=== PATIENT | female | born 1960 | race Hispanic/Latino ===

== ENCOUNTER 2016-09-21 01:00 | Emergency (ER) | payer SELFPAY ==
[~2016-09-21] VITALS: Ht 152.4 cm; Wt 91.4 kg
[2016-09-21] MEDS ORDERED: PREDNISONE20 MG PO (02:17)
[2016-09-21 02:33] VITALS: BP 115/71
== END 2016-09-21 02:35 | disposition home or self-care (01) ==
LOC: EME 01:00
DX: L50.0 Allergic urticaria (principal)
CPT/HCPCS: 99281; 99285; J1200; J2930; S0028

== ENCOUNTER 2017-09-24 11:07 | Emergency (ER) | payer SELFPAY ==
[~2017-09-24] VITALS: Ht 154.9 cm; Wt 94.8 kg
[~2017-09-24 11:07] MED LIST: PREDNISONE20 MG PO
[2017-09-24 11:54] LABS: HEMATOCRIT 40.3 % (36.0-46.0); HEMOGLOBIN 13.6 G/DL (11.9-15.5); MCH 28.6 PG (29.0-34.0); MCHC 33.7 G/DL (30.0-36.0); MCV 84.8 FL (83-99); PLATELET COUNT 268 K/uL (156-360); RBC DIS.WIDTH-CV 12.3 % (11.8-14.6); RBC DIS.WIDTH-SD 37.9 % (39-53); RED BLOOD COUNT 4.75 M/uL (3.80-5.20); WHITE BLOOD COUNT 5.7 K/uL (4.1-10.2)
[2017-09-24 12:08] LABS: CHLORIDE 105 mEq/L (99-109); POTASSIUM 3.8 mEq/L (3.7-5.4); SODIUM 139 mEq/L (136-147)
[2017-09-24 12:09] LABS: GLUCOSE 136 mg/dL (70-99)
[2017-09-24 12:13] LABS: CREATININE 0.8 mg/dL (0.6-1.3); GFR ESTIMATE (CALCULATED) > 59 mL/min/
[2017-09-24 12:14] LABS: UREA NITROGEN (BUN) 13 mg/dL (9-23)
[2017-09-24 12:18] LABS: TROP-I INTERPRETATION NEGATIVE; TROPONIN-I < 0.01 ng/mL (0.0-0.30)
[2017-09-24 15:16] LABS: TROP-I INTERPRETATION NEGATIVE; TROPONIN-I < 0.01 ng/mL (0.0-0.30)
[2017-09-24] MEDS ORDERED: VALTREX1000 MG PO (16:01)
[2017-09-24 16:12] VITALS: BP 165/75
== END 2017-09-24 16:13 | disposition home or self-care (01) ==
LOC: EME 11:07
PROVIDERS: Physician Assistant Medical
DX: R07.9 Chest pain, unspecified (principal); B02.9 Zoster without complications; M54.9 Dorsalgia, unspecified; K21.9 Gastro-esophageal reflux disease without esophagitis
CPT/HCPCS: 71046; 71275; 80048; 84484; 85027; 85379; 93005; 99281; 99285; J7030